=== PATIENT | female | born 2000 | race African-American/Black ===

== ENCOUNTER 2018-12-10 20:14 | Observation (INO) | payer MEDICAID ==
[~2018-12-10] VITALS: Ht 160 cm; Wt 59.9 kg
[2018-12-10] MEDS ORDERED: PREN1TAB78 MT (20:39)
== END 2018-12-10 21:10 | disposition home or self-care (01) ==
LOC: 8 EST LDRP 20:14
PROVIDERS: ADMIT Obstetrics & Gynecology; ATTEND Obstetrics & Gynecology
DX: O26.892 Other specified pregnancy related conditions, second trimester (principal); N89.8 Other specified noninflammatory disorders of vagina; Z3A.26 26 weeks gestation of pregnancy
CPT/HCPCS: 99281; G0378

== ENCOUNTER 2019-03-04 10:02 | Observation (INO) | payer MEDICAID ==
[~2019-03-04] VITALS: Ht 160 cm; Wt 68.0 kg
[~2019-03-04 10:02] MED LIST: PREN1TAB78 MT
[2019-03-04] MEDS ORDERED: LACTATED RINGERS 1,000 ML IV SCH (10:27)
[2019-03-04] MEDS ORDERED: DEXT 5%/LR + PITOCIN 20UNITS/L 1,000 ML IV SCH (10:27)
[2019-03-04] MEDS ORDERED: LIDOCAINE HCL 1% 20ML VIAL (Pyxis) INJ INFIL PRN (10:30)
[2019-03-04] MEDS ORDERED: PENICILLIN G POTASSIUM 5 MMU in DEXT 5% WATER 100 ML IV NR (10:30)
[2019-03-04] MEDS ORDERED: BUTORPHANOL TARTRATE 2 MG/ML VIAL IV PRN (10:30)
[2019-03-04] MEDS ORDERED: MISOPROSTOL 100MCG TABLET VG PRN (10:30)
[2019-03-04] MEDS ORDERED: METHYLERGONOVINE MALEATE 0.2 MG/ML IM PRN (10:30)
[2019-03-04] MEDS ORDERED: KEPP500 PO (11:08)
[2019-03-04 11:36] LABS: BASOPHILS % 0.7 % (0.0-2.0); EOSINOPHILS % 1.4 % (0.0-5.0); HEMATOCRIT. 30.2 % (36.0-48.0); HEMOGLOBIN. 9.7 g/dL (12.0-16.0); LYMPHOCYTES % 27.7 % (20.0-50.0); MEAN CORPUSCULAR HEMOGLOBIN 25.9 pg (28.0-32.0); MEAN CORPUSCULAR VOLUME 80.4 fL (81.0-99.0); MEAN PLATELET VOLUME 9.7 fl (7.4-10.4); MONOCYTES % 11.7 % (2.0-8.0); NEUTROPHILS % 58.5 % (40.0-76.0); PLATELET 188 x1000/uL (130-400); RED BLOOD CELL COUNT 3.75 mill/uL (4.2-5.4); RED CELL DISTRIBUTION WIDTH 15.4 % (11.6-14.6)
[2019-03-04 11:37] LABS: CLARITY URINE CLOUDY (CLEAR); COLOR URINE YELLOW (YELLOW); KETONES URINE NEGATIVE (NEGATIVE); LEUKOCYTE ESTERASE URINE 3+ (NEGATIVE); NITRITE URINE NEGATIVE (NEGATIVE); OCCULT BLOOD URINE TRACE (NEGATIVE); PROTEIN URINE NEGATIVE (NEGATIVE); SPECIFIC GRAVITY URINE 1.006 (1.005-1.030); UROBILINOGEN URINE 0.2 E.U./dL (0.2-1.0)
[2019-03-04 11:42] LABS: PARTIAL THROMBOPLASTIN TIME 30.2 sec (23.4-31.0); PROTHROMBIN TIME 9.8 sec (9.6-11.0)
[2019-03-04 12:01] LABS: *AMPHETAMINES SCREEN URINE NEGATIVE (NEGATIVE); *BARBITURATES SCREEN URINE NEGATIVE (NEGATIVE); *BENZODIAZEPINES SCREEN URINE NEGATIVE (NEGATIVE)
[2019-03-04 12:02] LABS: *COCAINE SCREEN URINE NEGATIVE (NEGATIVE); CANNABINOID URINE SCREEN NEGATIVE (NEGATIVE); METHADONE URINE SCREEN NEGATIVE (NEGATIVE); OPIATES URINE SCREEN NEGATIVE (NEGATIVE); PHENCYCLIDINE URINE SCREEN NEGATIVE (NEGATIVE)
[2019-03-04 12:26] LABS: HEPATITIS B SURFACE ANTIGEN NEGATIVE
[2019-03-04] MEDS ORDERED: PENICILLIN G POTASSIUM 2.5 MMU in DEXTROSE 5% WATER 50 ML IV SCH (15:00)
== END 2019-03-04 13:20 | disposition home or self-care (01) ==
LOC: 8 EST LDRP 10:02
PROVIDERS: ADMIT Obstetrics & Gynecology; ATTEND Obstetrics & Gynecology
DX: O62.9 Abnormality of forces of labor, unspecified (principal); O26.893 Other specified pregnancy related conditions, third trimester; N89.8 Other specified noninflammatory disorders of vagina; Z3A.38 38 weeks gestation of pregnancy
CPT/HCPCS: 36415; 80305; 81003; 85025; 85610; 85730; 86592; 86703; 86762; 86850; 86900; 86901; 87086; 87340; 99281; G0378; J2540; J7060; 96360; 96361; 96365; J2590